=== PATIENT | female | born 1975 | race Caucasian/White ===

== ENCOUNTER 2020-06-21 11:17 | Inpatient (IN) | payer OTHER ==
--- NOTE | 2020-06-21 11:24 | BHS.RME ---
Substance Use & Tx History - Substance Use History Alcohol Substance amount: 1/2 pint vodka + 2-3 beers 12 oz Frequency of use: Daily Substance route: Oral Date of Last Use: 06/21/20 (started age 16) Cocaine-Crack Substance amount: $50-100 Frequency of use: Daily Substance route: Smoking Date of Last Use: 06/20/20 (started age 32) Nicotine Substance amount: 5-10 ciggs Frequency of use: Daily Substance route: Smoking Date of Last Use: 06/21/20 (started age 17) - Last Treatment Date of last treatment: 05/2020 Marco Antonio mcdonnell did not complete detox Treatment type: Substance Use Disorder (NADEGE) Where was last treatment: Detox Physical/Psych/Mental Status - Behavior General Behavior: Increased activity (restlessness, agitation) Eye Contact: Normal - Cooperativeness Cooperativeness: Cooperative - Thinking Thought Processes: Tight, Logical, Goal Directed - Physical Health Problems Is patient presently having any pain?: No Does patient presently have any injuries (include location): No Does patient currently have a fever: No Is patient : No CIWA Nausea/Vomitin-No Nausea/No Vomiting Muscle Tremors: 1-None Visible, but [place]
--- NOTE | 2020-06-21 12:54 | HP ---
CIWA Score Nausea/Vomitin-No Nausea/No Vomiting Muscle Tremors: 1-None Visible, but [place] - Admission Criteria OASAS Guidelines: Admission for Medically Managed Detox: Requires at least one of the followin. CIWA greater than 12 2. Seizures within the past 24 hours 3. Delirium tremens within the past 24 hours 4. Hallucinations within the past 24 hours 5. Acute intervention needed for co occurring medical disorder 6. Acute intervention needed for co occurring psychiatric disorder 7. Severe withdrawal that cannot be handled at a lower level of care (continued vomiting, continued diarrhea, abnormal vital signs) requiring intravenous medication and/or fluids 8. Admission ROS [facility] Chief Complaint: " i WANT TO STOP USING DRUGS." History of Present Illness: 44 year old female with history of alcohol dependence just recently relapsed 3 years now after 8 years of sobriety. Cocaine use disorder and nicotine dependence seeking detox from alcohol. - Substance Use History Alcohol Substance amount: 1/2 pint vodka + 2-3 beers 12 oz Frequency of use: Daily Substance route: Oral Date of Last Use: 06/21/20 (started age 16) [facility], and endorses the need for an eye liquor rectifier daily Cocaine-Crack Substance amount: $50-100 Frequency of use: Daily Substance route: Smoking Date of Last Use: 06/20/20 (started age 32) Nicotine Substance amount: 5-10 ciggs Frequency of use: Daily Substance route: Smoking Date of Last Use: 06/21/20 (started age 17) - Last Treatment Date of last treatment: 05/2020 Marco Antonio mcdonnell did not complete detox Treatment type: Substance Use Disorder (NADEGE) Where was last treatment: Detox PMH: Obesity, Chronic Low back pain, B/L Knees arthritis Psurg: Scheduled for knee replacements Psych: Depression - sees psychiatrist in [place] and is on medications She lives alone in [place] in own apartment. No legal problems pending. JIMMY=0.000 CIWA=12 She will contract for completion of detox as she left early in a recent detox from [facility]. Exam Limitations: No Limitations - Ebola screening Have you traveled outside of the country in the last 21 days: No Have you had contact with anyone from an Ebola affected area: No Have you been sick,other than usual withdrawal symptoms: No Do you have a fever: No - Review of Systems Constitutional: Chills, Unintentional Wgt. Loss EENT: reports: No Symptoms Reported Respiratory: reports: No Symptoms reported Cardiac: reports: No Symptoms Reported GI: reports: No Symptoms Reported : reports: No Symptoms Reported Musculoskeletal: reports: No Symptoms Reported Integumentary: reports: No Symptoms Reported Neuro: reports: Headache, Tremors Endocrine: reports: No Symptoms Reported Hematology: reports: No Symptoms Reported Psychiatric: reports: Judgement Intact, Mood/Affect Appropiate, Orientated x3, Agitated, Anxious Other Systems: Reviewed and Negative Patient History - Patient Medical History Hx Hypertension: No Hx Hypercholesterolemia: No Hx Pacemaker: No HX Cerebrovascular Accident: No Hx Seizures: No Hx Dementia: No Hx Diabetes: No Hx Gastrointestinal Disorders: No Hx Liver Disease: No Hx Genitourinary Disorders: No Hx Sexually Transmitted Disorders: No Hx Renal Disease (ESRD): No Hx Thyroid Disease: No Hx Human Immunodeficiency Virus (HIV): No (LAST TESTED 2018) Hx Hepatitis C: No Hx Depression: Yes Hx Suicide Attempt: No Hx Bipolar Disorder: No Hx Schizophrenia: No Other Medical History: CHRONIC LOW BACK PAIN, B/L OSTEOARTHRITIS BOTH KNEES - Patient Surgical History Past Surgical History: No - PPD History Previous Implant?: Yes Documented Results: Negative w/o proof Implanted On Prior R Admission?: No PPD to be Administered?: Yes - Smoking Cessation Smoking history: Current every day smoker Have you smoked in the past 12 months: Yes Aproximately how many cigarettes per day: 10 Hx Chewing Tobacco Use: No Initiated information on smoking cessation: Yes 'Breaking Loose' booklet given: 06/21/20 - Substances abused Alcohol Other (specify): 1/2 PINT VODKA Substance route: Oral Frequency: Daily Age of first use: 16 Date of last use: 06/21/20 Crack Substance route: Smoking Frequency: Daily Amount used: $50-100 Age of first use: 32 Date of last use: 06/20/20 Admission Physical Exam S - Physical General Appearance: Yes: Mild Distress, Tremorous, Irritable, Sweating, Anxious HEENTM: Yes: EOMI, Hearing grossly Normal, Normal ENT Inspection, Normocephalic, Normal Voice, SHERRIE, Pharynx Normal, Tm's normal Respiratory: Yes: Chest Non-Tender, Lungs Clear, Normal Breath Sounds, No Respiratory Distress, No Accessory Muscle Use Neck: Yes: No masses,lesions,Nodules, Supple, Trachea in good position Breast: Yes: Within Normal Limits Cardiology: Yes: Regular Rhythm, Regular Rate, S1, S2 Abdominal: Yes: Normal Bowel Sounds, Non Tender, Soft, Protuberent Genitourinary: Yes: Within Normal Limits Back: Yes: Normal Inspection Musculoskeletal: Yes: full range of Motion, Gait Steady, Pelvis Stable Extremities: Yes: Normal Capillary Refill, Normal Inspection, Normal Range of Motion, Non-Tender Neurological: Yes: client support professional II-XII NML intact, Fully Oriented, Alert, Motor Strength 5/5, Normal Mood/Affect, Normal Response Integumentary: Yes: Normal Color, Dry, Warm Lymphatic: Yes: Within Normal Limits - Diagnostic (1) Obesity Current Visit: Yes Status: Acute (2) Chronic low back pain Current Visit: Yes Status: Acute (3) Osteoarthritis (arthritis due to wear and tear of joints) Current Visit: Yes Status: Acute (4) Depression Current Visit: Yes Status: Acute Cleared for Admission [facility] - Detox or Rehab [facility] Level of Care: Medically Managed Detox Regimen/Protocol: Librium Claeared for Rehab Admission: No Screened but not Admitted - Documentation of Visit Screened but not Admitted: No Breathalyzer - Breathalyzer Breathalyzer: 0 Vital Signs - Vital Signs Vital signs refused: No Temperature: 97.3 F Pulse Rate: 75 Respiratory Rate: 14 Blood Pressure: 123/67 BP Location: Left Arm Blood Pressure position: Sitting - Height Height: 5 ft 3 in - Weight Weight: 218 lb Weight measurement method: Standing scale - BMI Body Mass Index (BMI): 38.6 - Bowel Function Bowel Movement: No Urine Drug Screen - Results Drug screen NEGATIVE: No Urine drug screen results: RAMON-Cocaine Inpatient Rehab Admission - Rehab Decision to Admit Inpatient rehab admission?: No
[2020-06-21 13:04] VITALS: BMI 38.6
[2020-06-21] MEDS ORDERED: IBUPROFEN 400 MG TABLET (FP) PO PRN (13:04)
[2020-06-21] MEDS ORDERED: BISMUTH SUBSALICYLATE 262 MG/15 ML BTL PO PRN (13:04)
[2020-06-21] MEDS ORDERED: ONDANSETRON *ODT* 4 MG TABLET SL PRN (13:04)
[2020-06-21] MEDS ORDERED: ACETAMINOPHEN 325 MG TABLET (FP) PO PRN ×2 (13:04)
[2020-06-21] MEDS ORDERED: MENTHOL/PHENOL 1 EACH UD MM PRN (13:04)
[2020-06-21] MEDS ORDERED: chlordiazePOXIDE HCL 25 MG CAPSULE PO PRN (13:04)
[2020-06-21] MEDS ORDERED: MAGNESIUM CITRATE 300 ML BOTTLE PO PRN (13:04)
[2020-06-21] MEDS ORDERED: MAGNESIUM HYDROX 2400MG/30ML ORAL SUSPENSION 30 ML CUP PO PRN (13:04)
[2020-06-21] MEDS ORDERED: NICOTINE POLACRILEX 2 MG GUM BUC PRN (13:04)
[2020-06-21] MEDS: hydrOXYzine PAMOATE 25 MG CAPSULE (FP) PO SCH ×3 (15:31→22:42)
[2020-06-21] MEDS: METHOCARBAMOL 500 MG TABLET PO PRN ×2 (15:31→22:42)
[2020-06-21] MEDS: chlordiazePOXIDE HCL 25 MG CAPSULE PO SCH ×3 (15:33→22:42)
[2020-06-21] MEDS: NICOTINE 7 MG/24 HOURS TOPICAL PATCH TD SCH (15:33)
[2020-06-21] MEDS: PRENATAL VITAMINS W/ FOLIC ACID TABLET (FP) PO SCH (15:33)
--- OUTSIDE RECORDS SUMMARY | 2020-06-21 15:37 | XMS ---
:1975 Author Organization [facility] Support Name Relationship Address Phone UE Unavailable Unavailable Unavailable BROOKS SCANLON MOTHER [address] [place] [address] Re-disclosure Warning The records that you are about to access may contain information from federally- assisted alcohol or drug abuse programs. If such information is present, then the following federally mandated warning applies: This information has been disclosed to you from records protected by federal confidentiality rules (42 CFR part 2). The federal rules prohibit you from making any further disclosure of this information unless further disclosure is expressly permitted by the written consent of the person to whom it pertains or as otherwise permitted by 42 CFR part 2. A general authorization for the release of medical or other information is NOT sufficient for this purpose. The Federal rules restrict any use of the information to criminally investigate or prosecute any alcohol or drug abuse patient.The records that you are about to access may contain highly sensitive health information, the redisclosure of which is protected by Article 27-F of the [facility] Public Health law. If you continue you may haveaccess to information: Regarding HIV / AIDS; Provided by facilities licensed or operated by the [facility] Office of Mental Health; or Provided by the [facility] Office for People With Developmental Disabilities. If such information is present, then the following [facility] mandated warning applies: This information has been disclosed to you from confidential records which are protected by state law. State law prohibits you from making any further disclosure of this information without the specific written consent of the person to whom it pertains, or as otherwise permitted by law. Any unauthorized further disclosure in violation of state law may result in a fine or usp sentence or both. A general authorization for the release of medical or other information is NOT sufficient authorization for further disclosure. Insurance Providers Payer name Policy type Policy ID Covered Covered alliance party's Policy P foster / Coverage alliance party ID relationship to [facility] ormation type [employer] HEALTH [id number] FIRST
[2020-06-21 16:51] LABS: HEMATOCRIT 42.4 % (32.4-45.2); HEMOGLOBIN 13.8 GM/dL (10.7-15.3); MCH 29.6 pg (25.7-33.7); MCHC 32.6 g/dl (32.0-36.0); MEAN PLT VOLUME 8.8 fl (7.5-11.1); PLATELET COUNT 324 K/MM3 (134-434); RBC 4.66 M/mm3 (3.60-5.2); RDW 13.4 % (11.6-15.6); WHITE BLOOD COUNT 12.2 K/mm3 (4.0-10.0)
[2020-06-21 17:07] LABS: ALBUMIN 3.7 g/dl (3.4-5.0); BILIRUBIN,TOTAL 0.3 mg/dL (0.2-1); CALCIUM 9.3 mg/dL (8.5-10.1); CREATININE 0.9 mg/dL (0.55-1.3); POTASSIUM 3.7 mmol/L (3.5-5.1); TOT PROT 7.5 g/dl (6.4-8.2)
[2020-06-21] MEDS: MELATONIN 5 MG TABLETS PO SCH (22:42)
[2020-06-21] MEDS: THIAMINE HCL 100 MG TABLET (FP) PO SCH (22:43)
[2020-06-22] MEDS: chlordiazePOXIDE HCL 25 MG CAPSULE PO SCH ×4 (05:42→22:49)
[2020-06-22] MEDS: hydrOXYzine PAMOATE 25 MG CAPSULE (FP) PO SCH ×3 (05:43→15:40)
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
--- NOTE | 2020-06-22 10:13 | EKG ---
Test Reason : Blood Pressure : / mmHG Vent. Rate : 076 BPM Atrial Rate : 076 BPM P-R Int : 124 ms QRS Dur : 082 ms QT Int : 366 ms P-R-T Axes : 060 040 054 degrees QTc Int : 411 ms NORMAL SINUS RHYTHM POSSIBLE LEFT ATRIAL ENLARGEMENT NONSPECIFIC T WAVE ABNORMALITY ABNORMAL ECG NO PREVIOUS ECGS AVAILABLE Confirmed by MD Montalvo Edward ([id number]) on 06/22/2020 10:13:08 AM Referred By: Confirmed By:Tee Montalvo MD
[2020-06-22] MEDS: PRENATAL VITAMINS W/ FOLIC ACID TABLET (FP) PO SCH (11:12)
[2020-06-22] MEDS: NICOTINE 7 MG/24 HOURS TOPICAL PATCH TD SCH (11:12)
[2020-06-22] MEDS ORDERED: FLU VACCINE (FLULAVAL) PF 60 MCG/0.5 ML SYRINGE 2020-2021 IM ONE (12:00)
--- NOTE | 2020-06-22 14:36 | PN ---
[facility] CIWA - CIWA Score Nausea/Vomitin-No Nausea/No Vomiting Muscle Tremors: 3 Anxiety: 2 Agitation: 3 Paroxysmal Sweats: 2 Orientation: 0-Oriented Tacttile Disturbances: 0-None Auditory Disturbances: 0-None Visual Disturbances: 0-None Headache: 0-None Present CIWA-Ar Total Score: 10 S Progress Note (SOAP) Subjective: sweats body aches restless Objective: 06/22/20 14:35 Vital Signs Temperature 97.5 F L 06/22/20 05:29 Pulse Rate 79 06/22/20 05:29 Respiratory Rate 20 06/22/20 05:29 Blood Pressure 114/81 06/22/20 05:29 O2 Sat by Pulse Oximetry (%) 100 06/22/20 05:29 Laboratory Tests 06/21/20 06/21/20 06/21/20 13:45 13:45 13:45 WBC 12.2 H RBC 4.66 Hgb 13.8 Hct 42.4 MCV 91.0 MCH 29.6 MCHC 32.6 RDW 13.4 Plt Count 324 MPV 8.8 Sodium 138 Potassium 3.7 Chloride 103 Carbon Dioxide 29 Anion Gap 5 L BUN 12.0 Creatinine 0.9 Est GFR (CKD-EPI)AfAm 90.13 Est GFR (CKD-EPI)NonAf 77.76 Random Glucose 105 Calcium 9.3 Total Bilirubin 0.3 AST 17 ALT 33 Alkaline Phosphatase 106 Total Protein 7.5 Albumin 3.7 Syphilis Serology Non-reactive COVID-19 (DUSTIN) HIV Ag/Ab Combo Qual 06/21/20 06/21/20 14:30 14:30 WBC RBC Hgb Hct MCV MCH MCHC RDW Plt Count MPV Sodium Potassium Chloride Carbon Dioxide Anion Gap BUN Creatinine Est GFR (CKD-EPI)AfAm Est GFR (CKD-EPI)NonAf Random Glucose Calcium Total Bilirubin AST ALT Alkaline Phosphatase Total Protein Albumin Syphilis Serology COVID-19 (DUSTIN) Not detected HIV Ag/Ab Combo Qual Negative labs noted aaox3 ambulating no acute distress Assessment: 06/22/20 14:35 withdrawals Plan: continue detox
[2020-06-22] MEDS: hydrOXYzine PAMOATE 25 MG CAPSULE (FP) PO PRN (15:32)
[2020-06-22] MEDS: MAG HYDROX/AL HYDROX/SIMETH 30 ML UNIT-DOSE CUP PO PRN (18:25)
[2020-06-22] MEDS: THIAMINE HCL 100 MG TABLET (FP) PO SCH (22:50)
[2020-06-22] MEDS: MELATONIN 5 MG TABLETS PO SCH (22:50)
[2020-06-23] MEDS: chlordiazePOXIDE HCL 25 MG CAPSULE PO SCH ×4 (06:47→22:20)
[2020-06-23] MEDS: NICOTINE 7 MG/24 HOURS TOPICAL PATCH TD SCH (10:29)
[2020-06-23] MEDS: PRENATAL VITAMINS W/ FOLIC ACID TABLET (FP) PO SCH (10:29)
--- NOTE | 2020-06-23 13:39 | PN ---
S CIWA - CIWA Score Nausea/Vomitin-No Nausea/No Vomiting Muscle Tremors: 2 Anxiety: 1-Mildly Anxious Agitation: 1-Slight > Activity Paroxysmal Sweats: 2 Orientation: 0-Oriented Tacttile Disturbances: 0-None Auditory Disturbances: 0-None Visual Disturbances: 0-None Headache: 0-None Present CIWA-Ar Total Score: 6 BHS Progress Note (SOAP) Subjective: sweats shakes Objective: 06/23/20 13:39 Vital Signs Temperature 97.3 F L 06/23/20 09:00 Pulse Rate 76 06/23/20 09:00 Respiratory Rate 18 06/23/20 09:00 Blood Pressure 103/73 06/23/20 09:00 O2 Sat by Pulse Oximetry (%) 95 06/23/20 06:28 Laboratory Tests 06/21/20 06/21/20 06/21/20 13:45 13:45 13:45 WBC 12.2 H RBC 4.66 Hgb 13.8 Hct 42.4 MCV 91.0 MCH 29.6 MCHC 32.6 RDW 13.4 Plt Count 324 MPV 8.8 Sodium 138 Potassium 3.7 Chloride 103 Carbon Dioxide 29 Anion Gap 5 L BUN 12.0 Creatinine 0.9 Est GFR (CKD-EPI)AfAm 90.13 Est GFR (CKD-EPI)NonAf 77.76 Random Glucose 105 Calcium 9.3 Total Bilirubin 0.3 AST 17 ALT 33 Alkaline Phosphatase 106 Total Protein 7.5 Albumin 3.7 Syphilis Serology Non-reactive COVID-19 (DUSTIN) HIV Ag/Ab Combo Qual 06/21/20 06/21/20 14:30 14:30 WBC RBC Hgb Hct MCV MCH MCHC RDW Plt Count MPV Sodium Potassium Chloride Carbon Dioxide Anion Gap BUN Creatinine Est GFR (CKD-EPI)AfAm Est GFR (CKD-EPI)NonAf Random Glucose Calcium Total Bilirubin AST ALT Alkaline Phosphatase Total Protein Albumin Syphilis Serology COVID-19 (DUSTIN) Not detected HIV Ag/Ab Combo Qual Negative labs noted aaox3 ambulating no acute distress Assessment: 06/23/20 13:39 withdrawals Plan: continue detox
[2020-06-23] MEDS: MELATONIN 5 MG TABLETS PO SCH (22:49)
[2020-06-23] MEDS: THIAMINE HCL 100 MG TABLET (FP) PO SCH (22:49)
[2020-06-23] MEDS: MAG HYDROX/AL HYDROX/SIMETH 30 ML UNIT-DOSE CUP PO PRN (22:49)
[2020-06-24] MEDS ORDERED: chlordiazePOXIDE HCL 10 MG CAPSULE PO PRN
[2020-06-24] MEDS: chlordiazePOXIDE HCL 10 MG CAPSULE PO SCH ×2 (06:30→10:58)
[2020-06-24] MEDS: NICOTINE 7 MG/24 HOURS TOPICAL PATCH TD SCH (10:56)
[2020-06-24] MEDS: PRENATAL VITAMINS W/ FOLIC ACID TABLET (FP) PO SCH (10:56)
[2020-06-24] MEDS: hydrOXYzine PAMOATE 25 MG CAPSULE (FP) PO PRN (11:51)
[2020-06-24 13:45] VITALS: BP 121/76; PULSE 66; TEMP 98.2
--- NOTE | 2020-06-24 14:10 | PN ---
S CIWA - CIWA Score Nausea/Vomitin-No Nausea/No Vomiting Muscle Tremors: 1-None Visible, but [place] Anxiety: 1-Mildly Anxious Agitation: 1-Slight > Activity Paroxysmal Sweats: 1-Minimal Palms Moist Orientation: 0-Oriented Tacttile Disturbances: 0-None Auditory Disturbances: 0-None Visual Disturbances: 0-None Headache: 0-None Present CIWA-Ar Total Score: 4 BHS Progress Note (SOAP) Subjective: sweats i need to see psych for my lexapro Objective: 06/24/20 14:09 Vital Signs Temperature 98.2 F 06/24/20 12:38 Pulse Rate 66 06/24/20 12:38 Respiratory Rate 18 06/24/20 12:38 Blood Pressure 121/76 06/24/20 12:38 O2 Sat by Pulse Oximetry (%) 96 06/24/20 12:38 Laboratory Tests 06/21/20 06/21/20 06/21/20 13:45 13:45 13:45 WBC 12.2 H RBC 4.66 Hgb 13.8 Hct 42.4 MCV 91.0 MCH 29.6 MCHC 32.6 RDW 13.4 Plt Count 324 MPV 8.8 Sodium 138 Potassium 3.7 Chloride 103 Carbon Dioxide 29 Anion Gap 5 L BUN 12.0 Creatinine 0.9 Est GFR (CKD-EPI)AfAm 90.13 Est GFR (CKD-EPI)NonAf 77.76 Random Glucose 105 Calcium 9.3 Total Bilirubin 0.3 AST 17 ALT 33 Alkaline Phosphatase 106 Total Protein 7.5 Albumin 3.7 Syphilis Serology Non-reactive COVID-19 (DUSTIN) HIV Ag/Ab Combo Qual 06/21/20 06/21/20 14:30 14:30 WBC RBC Hgb Hct MCV MCH MCHC RDW Plt Count MPV Sodium Potassium Chloride Carbon Dioxide Anion Gap BUN Creatinine Est GFR (CKD-EPI)AfAm Est GFR (CKD-EPI)NonAf Random Glucose Calcium Total Bilirubin AST ALT Alkaline Phosphatase Total Protein Albumin Syphilis Serology COVID-19 (DUSTIN) Not detected HIV Ag/Ab Combo Qual Negative labs noted aaox3 ambulating no acute distress Assessment: 06/24/20 14:09 withdrawals Plan: continue detox psych ordered
--- NOTE | 2020-06-24 14:30 | PN ---
S Progress Note Note: pt refused to wait for psych re-evaluation order placed today for consultation. Pt states I just want to go home now. Pt did not want to elaborate her reasons. Pt was made aware of risk of relapse, seizures, DT, OD and loss, pt chose to sign out AMA.
--- NOTE | 2020-06-24 14:31 | DS ---
[facility] Detox Discharge Summary Admission Date: 06/21/20 - History Present History: Alcohol Dependence, Cocaine Dependence - Physical Exam Results Vital Signs: Vital Signs Temperature 98.2 F 06/24/20 12:38 Pulse Rate 66 06/24/20 12:38 Respiratory Rate 18 06/24/20 12:38 Blood Pressure 121/76 06/24/20 12:38 O2 Sat by Pulse Oximetry (%) 96 06/24/20 12:38 Pertinent Admission Physical Exam Findings: Vital Signs Temperature 98.2 F 06/24/20 12:38 Pulse Rate 66 06/24/20 12:38 Respiratory Rate 18 06/24/20 12:38 Blood Pressure 121/76 06/24/20 12:38 O2 Sat by Pulse Oximetry (%) 96 06/24/20 12:38 Laboratory Tests 06/21/20 06/21/20 06/21/20 13:45 13:45 13:45 WBC 12.2 H RBC 4.66 Hgb 13.8 Hct 42.4 MCV 91.0 MCH 29.6 MCHC 32.6 RDW 13.4 Plt Count 324 MPV 8.8 Sodium 138 Potassium 3.7 Chloride 103 Carbon Dioxide 29 Anion Gap 5 L BUN 12.0 Creatinine 0.9 Est GFR (CKD-EPI)AfAm 90.13 Est GFR (CKD-EPI)NonAf 77.76 Random Glucose 105 Calcium 9.3 Total Bilirubin 0.3 AST 17 ALT 33 Alkaline Phosphatase 106 Total Protein 7.5 Albumin 3.7 Syphilis Serology Non-reactive COVID-19 (DUSTIN) HIV Ag/Ab Combo Qual 06/21/20 06/21/20 14:30 14:30 WBC RBC Hgb Hct MCV MCH MCHC RDW Plt Count MPV Sodium Potassium Chloride Carbon Dioxide Anion Gap BUN Creatinine Est GFR (CKD-EPI)AfAm Est GFR (CKD-EPI)NonAf Random Glucose Calcium Total Bilirubin AST ALT Alkaline Phosphatase Total Protein Albumin Syphilis Serology COVID-19 (DUSTIN) Not detected HIV Ag/Ab Combo Qual Negative aaox3 ambulating no acute distress pt chose to sign out AMA - Treatment Hospital Course: Rehab Referral Accepted - Medication Discharge Medications: Ambulatory Orders NK [No Known Home Medication] 06/21/20 - Diagnosis (1) Alcohol dependence, uncomplicated Current Visit: Yes Status: Chronic (2) Cocaine dependence Current Visit: Yes Status: Chronic Qualifiers: Substance use status: uncomplicated Qualified Code(s): F14.20 - Cocaine dependence, uncomplicated (3) Depression Current Visit: Yes Status: Acute (4) Substance-induced sleep disorder Current Visit: Yes Status: Acute (5) Chronic low back pain Current Visit: Yes Status: Chronic (6) MDD (major depressive disorder) Current Visit: Yes Status: Chronic (7) Nicotine dependence Current Visit: Yes Status: Chronic Qualifiers: Nicotine product type: cigarettes Substance use status: uncomplicated Qualified Code(s): F17.210 - Nicotine dependence, cigarettes, uncomplicated (8) Obesity Current Visit: Yes Status: Chronic Qualifiers: Obesity type: unspecified obesity type Body mass index: unspecified BMI (9) Osteoarthritis (arthritis due to wear and tear of joints) Current Visit: Yes Status: Chronic - AMA Did Patient Leave Against Medical Advice: Yes
[2020-06-25] MEDS ORDERED: chlordiazePOXIDE HCL 10 MG CAPSULE PO SCH (05:00)
[2020-06-26] MEDS ORDERED: chlordiazePOXIDE HCL 10 MG CAPSULE PO ONE (05:00)
== END 2020-06-24 15:12 | disposition left against medical advice (07) | DRG 770 ==
LOC: YASAS 11:17 → Y6N 14:25
PROVIDERS: ADMIT Allergy & Immunology; ATTEND Allergy & Immunology
PROC: HZ2ZZZZ Detoxification Services for Substance Abuse Treatment (ICD-10-PCS; principal; 2020-06-21)
DX: F10.230 Alcohol dependence with withdrawal, uncomplicated (principal); F14.20 Cocaine dependence, uncomplicated; F17.210 Nicotine dependence, cigarettes, uncomplicated; F19.282 Other psychoactive substance dependence with psychoactive substance-induced sleep disorder; F32.9 Major depressive disorder, single episode, unspecified; M17.0 Bilateral primary osteoarthritis of knee; M54.5 Low back pain; G89.29 Other chronic pain; E66.9 Obesity, unspecified; Z68.38 Body mass index [BMI] 38.0-38.9, adult
CPT/HCPCS: 36415; 80053; 85027; 86780; 87389; 93005; 93010; G0008; Q2036; U0003